=== PATIENT | male | born 2000 | race Caucasian/White ===

== ENCOUNTER → 2023-04-18 13:32 | Outpatient (REF) | payer OTHER, SELFPAY | LOC: MRI 3T 13:32 | PROVIDERS: ATTENDING PHYSICIAN Family Medicine; FAMILY PHYSICIAN Family Medicine | DX: S43.432S Superior glenoid labrum lesion of left shoulder, sequela (principal); M25.512 Pain in left shoulder | CPT/HCPCS: 23350; 73040; 73222 ==

== ENCOUNTER → 2024-04-30 08:34 | Outpatient (REF) | payer OTHER, SELFPAY | LOC: RAD 08:34 | PROVIDERS: ATTENDING PHYSICIAN Specialist; FAMILY PHYSICIAN Family Medicine | DX: R36.1 Hematospermia (principal) | CPT/HCPCS: 76872 ==

== ENCOUNTER → 2024-06-09 08:20 | Outpatient (REF) | payer OTHER, SELFPAY | LOC: MRI 3T 08:20 | PROVIDERS: ATTENDING PHYSICIAN Specialist; FAMILY PHYSICIAN Family Medicine | DX: R36.1 Hematospermia (principal) | CPT/HCPCS: 72197; A9575 ==

== ENCOUNTER → 2025-03-16 15:49 | Outpatient (REF) | payer OTHER, SELFPAY | LOC: RAD 15:49 | PROVIDERS: ATTENDING PHYSICIAN Family Medicine | DX: Z02.1 Encounter for pre-employment examination (principal) | CPT/HCPCS: 71046 ==